=== PATIENT | female | born 2000 ===

== ENCOUNTER → 2022-10-03 15:18 | Outpatient (CLI) | payer BC, SELFPAY ==
--- NOTE | ~2022-10-03 | US_ITS ---
EXAMINATION: US OB <= 14 weeks fetus DATE: 10/03/2022 15:52 INDICATION: Encounter for supervision of normal . TECHNIQUE: Real-time transabdominal pelvic ultrasound was performed. COMPARISON: None. FINDINGS: The uterus measures 8.8 x 3.9 x 6.8 cm. The endometrial complex measures 11 mm in thickness and demon strates heterogeneous echogenicity. No gestational sac is identified. The right ovary measures 2.9 x 2.1 x 3.3 cm. The left ovary measures 3.2 x 3.8 x 2.1 cm. There is no free fluid in the pelvis. IMPRESSION: 1. No visible intrauterine gestational sac, which may be normal in early . Spontaneous abor tion and ectopic are not included. Serial beta hCGs are recommended. Reviewed, dictated and finalized at location [facility]. IMPRESSION: 1. No visible intrauterine gestational sac, which may be normal in early pregn yolanda. Spontaneous and ectopic are not included. Serial beta hCGs are recommended.
== END ==
PROVIDERS: PCP Nurse Practitioner Family; Visit Provider Nurse Practitioner Family
DX: Z34.91 Encounter for supervision of normal pregnancy, unspecified, first trimester (principal); Z3A.00 Weeks of gestation of pregnancy not specified
CPT/HCPCS: 76801

== ENCOUNTER → 2022-10-15 09:19 | Outpatient (CLI) | payer BC, SELFPAY ==
--- NOTE | ~2022-10-15 | US_ITS ---
Pelvic ultrasound. Clinical History: First trimester , vaginal bleeding Technique: Realtime transabdominal and transvaginal scanning of the pelvis was performed. Color flow Doppler and Doppler spectral analysis were performed. Findings: The uterus is anteverted. The endometrial stripe has a thickness of 13 mm. No intrauterine gestational sac is identified. The right ovary measures 2.2 x 2.1 x 2.6 cm. No significant right ovarian or adnexal mass is seen. The left ovary is not visualized. No significant left ovarian or adnexal mass is seen. There is no evidence of free fluid in the cul de sac. Impression: Positive test without intrauterine gestation. Differential diagnosis includes early normal , spontaneous , or nonvisualized ectopic . Correlate clinically. Continued follow-up with serial beta hCG, and repeat ultrasound as warranted, is advised. Reviewed, dictated and finalized at [facility]. Impression: Positive test without intrauterine gestation. Differential diagnosis includes early normal , spontaneous , or nonvisualized ectopic . Correlate clinically. Continued follow-up with serial beta hCG, and repeat ultrasound as warranted, is advised.
== END ==
PROVIDERS: PCP Nurse Practitioner Family; Visit Provider Nurse Practitioner Family
DX: Z34.91 Encounter for supervision of normal pregnancy, unspecified, first trimester (principal)
CPT/HCPCS: 76801

== ENCOUNTER 2023-04-27 15:17 | Outpatient (CLI) | payer BC, SELFPAY ==
--- NOTE | ~2023-04-27 | US_ITS ---
Pelvic ultrasound. Clinical History: First trimester , establish dates and viability Technique: Realtime transabdominal and transvaginal scanning of the pelvis was performed. Color flow Doppler and Doppler spectral analysis were performed. Findings: The uterus is anteverted, and contains an intrauterine gestation. [place]-rump length of 2.6 cm corresponds to an estimated gestational age of 9 weeks 3 days. heart rate is 174 bpm. The right ovary measures 2.4 x 2.0 x 2.8 cm. No significant right ovarian or adnexal mass is seen. The left ovary measures 2.3 x 1.2 x 2.6 cm. No significant left ovarian or adnexal mass is seen. There is no evidence of free fluid in the cul de sac. Impression: Live intrauterine gestation with estimated gestational age of 9 weeks 3 days. heart rate is 174 bpm. Sonographic TRENT is 11/27/2023. Reviewed, dictated and finalized at [facility]. Impression: Live intrauterine gestation with estimated gestational age of 9 weeks 3 days. F etal heart rate is 174 bpm. Sonographic TRENT is 11/27/2023.
== END 2023-04-27 15:18 ==
LOC: MICIMG 15:19
PROVIDERS: PCP Nurse Practitioner Family; Visit Provider Nurse Practitioner Family
DX: Z34.91 Encounter for supervision of normal pregnancy, unspecified, first trimester (principal); Z3A.09 9 weeks gestation of pregnancy
CPT/HCPCS: 76801

== ENCOUNTER 2023-07-10 15:23 | Outpatient (CLI) | payer BC, SELFPAY ==
--- NOTE | ~2023-07-10 | US_ITS ---
EXAMINATION: US OB /maternal detail DATE: 07/10/2023 15:57 INDICATION: anatomic survey. TECHNIQUE: Real-time ultrasound of the pelvis was performed. COMPARISON: Ultrasound 04/27/2023 FINDINGS: There is a single living fetus in vertex presentation. The placenta is posterior, 5.6 cm from the ce rvix. The cervical length is 2.8 cm on transabdominal images, which is normal.. heart rate is 1 51 beats per minute (bpm). The amniotic fluid volume is subjectively normal. The following biometric data were obtained: Biparietal diameter (BPD): 4.9 cm; head circumference (HC): 18.0 cm; abdominal circumference (AC): 15 .8 cm; femur length (FL): 3.3 cm. These measurements are concordant. Estimated weight is 371 g +/- 56 g, which correlates with the 83rd percentile when 11/27/23 is used as estimated date of delivery. As single measurements, these parameters are each equal to the following estimated gestational ages: BPD: 20 weeks 6 days. HC: 20 weeks 3 days. AC: 21 weeks 0 days. FL: 20 weeks 3 days. estimated gestational age based solely on measurements from this exam is 20 weeks 5 days +/- 1 weeks 3 days. The cerebral ventricles, cerebellum, cisterna magna, nuchal fold, lip, and visualized portions of the spine are normal. The heart is normal. The diaphragm, stomach, kidneys, and bladder are normal. Ther e are two umbilical arteries to yield a 3-vessel cord. The cord insertion is normal. IMPRESSION: 1. Single living fetus in vertex presentation. 2. Estimated weight is 371 g +/- 56 g, which correlates with the 83rd percentile when 11/27/23 is used as estimated date of delivery. This day was set by ultrasound on 04/27/2023. 3. Normal anatomic survey. Reviewed, dictated and finalized at location A. IMPRESSION: 1. Single living fetus in vertex presentation. 2. Estimated weight is 371 g +/- 56 g, which correlates with the 83rd rcentile when 11/27/23 is used as estimated date of delivery. This day was set by ultrasound on 04/27/2023. 3. Normal anatomic survey.
== END 2023-07-10 15:24 ==
LOC: MICIMG 15:25
PROVIDERS: PCP Nurse Practitioner Family; Visit Provider Nurse Practitioner Family
DX: Z34.92 Encounter for supervision of normal pregnancy, unspecified, second trimester (principal)
CPT/HCPCS: 76805